=== PATIENT | female | born 1955 | race Asian ===

== ENCOUNTER 2024-12-28 22:09 | Emergency (ER) | payer MEDICARE ==
[~2024-12-28] VITALS: Ht 157.5 cm; Wt 71.4 kg
[2024-12-28 22:30] VITALS: TEMP 98.205296
[2024-12-28 23:10] LABS: PLATELET COUNT (AUTO) 184 K/uL (150-450); RED BLOOD CELL COUNT(AUTO) 4.10 MIL/uL (4.00-5.20); RED CELL DISTRIBUTION WIDTH 14.7 % (11.5-14.5); WHITE BLOOD COUNT (AUTO) 6.6 K/uL (4.5-11.0)
[2024-12-28 23:18] LABS: CALCIUM, TOTAL 8.8 mg/dL (8.8-10.5); CREATININE 0.96 mg/dL (0.60-1.30); GLOMERULAR FILTR. RATE CALC 58 mL/min (>60); GLUCOSE,RANDOM 127 mg/dL (70-110); SODIUM SERUM 146 mmol/L (136-145); UREA NITROGEN, BLOOD 21 mg/dL (7-18)
[2024-12-28 23:25] LABS: ASPARTATE AMINOTRANSFERASE 28.0 U/L (15-37); TOTAL PROTEIN, SERUM 7.5 g/dL (6.4-8.2)
[2024-12-28 23:31] LABS: APPEARANCE,URINE CLEAR (CLEAR); GLUCOSE, URINE (UA) NEGATIVE (NEGATIVE); LEUKOCYTE ESTERASE ,URINE NEGATIVE (NEGATIVE); NITRATE,URINE NEGATIVE (NEGATIVE); OCCULT BLOOD,URINE MODERATE (NEGATIVE); SPECIFIC GRAVITIY, URINE 1.004 (1.003-1.030)
[2024-12-28 23:32] LABS: TROPONIN I-HIGH SENSITIVITY 79 ng/L (<51)
[2024-12-28 23:43] LABS: SQUAMOUS EPITHELIAL CELL,UR Rare /LPF (None Seen)
[2024-12-29 00:50] LABS: TROPONIN I-HIGH SENSITIVITY 83 ng/L (<51)
[2024-12-29] MEDS: SODIUM CHLORIDE 0.9% 500 ML IV ONE (01:00)
[2024-12-29 01:15] VITALS: BP 134/86; PULSE 76; RESP 16; O2SAT 99
== END 2024-12-29 01:30 | disposition home or self-care (01) ==
LOC: EMS 23:24
DX: E86.0 Dehydration (principal); F41.9 Anxiety disorder, unspecified; R06.02 Shortness of breath; I10 Essential (primary) hypertension; J45.909 Unspecified asthma, uncomplicated; Z85.118 Personal history of other malignant neoplasm of bronchus and lung; Z88.8 Allergy status to other drugs, medicaments and biological substances; Z90.49 Acquired absence of other specified parts of digestive tract; Z90.710 Acquired absence of both cervix and uterus
CPT/HCPCS: 99285; 71045; 80048; 80076; 81001; 83880; 84484; 85025; 85610; 85730; 36415; 93005; J7040